=== PATIENT | female | born 1990 | race Caucasian/White ===

== ENCOUNTER 2021-08-10 08:23 | Outpatient (CLI) | payer OTHER ==
[2021-08-10 22:50] LABS: SARS-CoV-2 PCR by NAA Not Detected (NotDetected)
== END 2021-08-10 08:24 | disposition home or self-care (01) ==
LOC: CSHLAB 08:23
PROVIDERS: ATTEND Student in an Organized Health Care Education/Training Program
DX: Z20.822 Contact with and (suspected) exposure to COVID-19 (principal)
CPT/HCPCS: U0003; U0005

== ENCOUNTER 2021-08-14 06:00 | Inpatient (IN) | payer OTHER ==
[2021-08-15] MEDS ORDERED: Ondansetron PF 4 MG/2 ML Vial IVP PRN ×2 (06:50→13:08)
[2021-08-15] MEDS ORDERED: Methylergonovine 0.2 MG/ML VIAL IM PRN (06:50)
[2021-08-15] MEDS ORDERED: Lidocaine 1% (PF) 30 ML VIAL SC PRN (06:50)
[2021-08-15] MEDS ORDERED: hydrALAZINE 20 MG/ML VIAL SLOW IVP PRN (06:50)
[2021-08-15] MEDS ORDERED: Misoprostol 200 MCG TAB PR PRN (06:50)
[2021-08-15] MEDS ORDERED: Promethazine HCl 25 MG/ML VIAL IM PRN ×2 (06:50→13:08)
[2021-08-15] MEDS ORDERED: Acetaminophen 500 MG TAB PO PRN (06:50)
[2021-08-15] MEDS ORDERED: Butorphanol Tartrate 1 MG/ML VIAL SLOW IVP PRN (06:50)
[2021-08-15] MEDS ORDERED: Ibuprofen 800 MG TAB PO PRN (06:50)
[2021-08-15] MEDS ORDERED: Carboprost 250 MCG/ML AMP IM PRN (06:50)
[2021-08-15] MEDS ORDERED: Diphenoxylate HCl/Atropine Tablet PO PRN (06:50)
[2021-08-15] MEDS ORDERED: HYDROcodone/Acetaminophen 5/325 mg Tablet PO PRN (06:50)
[2021-08-15] MEDS ORDERED: Lactated Ringer's 1,000 ML IV SCH (07:00)
[2021-08-15] MEDS ORDERED: NS w/ Oxytocin 30 units 500 ML IV SCH (07:00)
[2021-08-15] MEDS ORDERED: Penicillin G Potassium 5 MILL.UNITS in Sodium Chloride 0.9% 100 ML IVPB SCH (07:00)
[2021-08-15] MEDS: Misoprostol 100 MCG TAB VAG SCH ×2 (08:08→11:26)
[2021-08-15 08:14] VITALS: BMI 36.6
[2021-08-15 08:34] LABS: Hemoglobin 11.3 g/dL (12.0-15.5); Mean Corpuscular HGB CONC 33.3 g/dL (32.0-36.0); Mean Corpuscular Hemoglobin 31.1 pg (27.0-33.0); Mean Corpuscular Volume 93.4 fl (81.6-98.3); Mean Platelet Volume 10.8 fl (7.4-10.4); Platelet Count 160 10x3/uL (150-450); RBC Distribution Width 19.8 % (11.5-14.5); Red Blood Cell (RBC) Count 3.63 10x6/uL (3.90-5.03); White Blood Cell (WBC) Count 10.1 10x3/uL (3.5-10.5)
[2021-08-15 09:07] LABS: Syphilis Antibody Nonreactive (Nonreactive); Syphilis Antibody Index 0.03 S/CO (<1.00 Non-Reactive)
[2021-08-15 09:08] LABS: Hep B Surf Ag Non-Reactive S/CO (NonReactive)
[2021-08-15 09:29] LABS: HBSAg Index 0.21 S/CO (0-0.99)
[2021-08-15] MEDS ORDERED: NS w/ Oxytocin 30 units 500 ML ONE (11:33)
[2021-08-15] MEDS ORDERED: NS w/ Oxytocin 10 units 500 ML IV SCH (11:45)
[2021-08-15] MEDS: Penicillin G 2.5 MILL.units 2.5 MILL.UNITS in Premix Bag 1 BAG IVPB SCH ×2 (12:16→16:22)
[2021-08-15] MEDS ORDERED: Fentanyl 2 mcg/Bup 0.1% Cadd 100 ML ONE ×2 (12:33→18:14)
[2021-08-15] MEDS ORDERED: ePHEDrine Sulfate 50 MG/10 ML VIAL SLOW IVP PRN (13:08)
[2021-08-15] MEDS ORDERED: Hydrocerin (Eucerin) Cream 120 gm Jar TOP PRN (13:08)
[2021-08-15] MEDS ORDERED: Lactated Ringer's 500 ML IV PRN (13:08)
[2021-08-15] MEDS ORDERED: diphenhydrAMINE 50 MG/ML VIAL IVP PRN (13:08)
[2021-08-15] MEDS ORDERED: Acetaminophen 325 MG TAB PO PRN (13:08)
[2021-08-15] MEDS ORDERED: Naloxone HCl 0.4 mg/ml Vial IVP PRN ×2 (13:08)
[2021-08-15] MEDS ORDERED: Fentanyl 2 mcg/Bupivacaine 0.1% Cassette 100 ML EPIDURAL SCH (13:15)
[2021-08-15] MEDS ORDERED: Communication Order-Pharmacy FS SCH (13:15)
[2021-08-16] MEDS ORDERED: Preparation H Ointment 28 GM TUBE PR PRN (00:10)
[2021-08-16] MEDS ORDERED: Bisacodyl 10 MG SUPP PR PRN (00:10)
[2021-08-16] MEDS ORDERED: hydrALAZINE 20 MG/ML VIAL SLOW IVP PRN (00:10)
[2021-08-16] MEDS ORDERED: Ondansetron PF 4 MG/2 ML Vial IVP PRN (00:10)
[2021-08-16] MEDS ORDERED: Benzocaine-Menthol 82.5 ML CAN TOP PRN (00:10)
[2021-08-16] MEDS ORDERED: diphenhydrAMINE 25 MG CAP PO PRN (00:10)
[2021-08-16] MEDS ORDERED: Boostrix 0.5 ML (Tdap) VIAL IM ONE (00:10)
[2021-08-16] MEDS ORDERED: Milk Of Magnesia 30 ML UDCUP PO PRN (00:10)
[2021-08-16] MEDS ORDERED: Promethazine HCl 25 MG/ML VIAL IM PRN (00:10)
[2021-08-16] MEDS ORDERED: Lanolin Ointment 7 GM TUBE TOP PRN (00:10)
[2021-08-16] MEDS ORDERED: NS w/ Oxytocin 30 units 500 ML IV SCH (01:00)
[2021-08-16] MEDS: Misoprostol 100 MCG TAB VAG SCH (01:34)
[2021-08-16] MEDS: Ibuprofen 800 MG TAB PO SCH ×3 (01:35→17:26)
[2021-08-16] MEDS: Penicillin G 2.5 MILL.units 2.5 MILL.UNITS in Premix Bag 1 BAG IVPB SCH (01:36)
[2021-08-16] MEDS: Prenatal Vitamin 1 TAB PO SCH (08:48)
[2021-08-16] MEDS: Docusate 100 MG CAP PO SCH ×2 (08:48→21:06)
[2021-08-16] MEDS: Ferrous Sulfate 325 MG TAB PO SCH ×2 (08:49→17:28)
[2021-08-17] MEDS: Ibuprofen 800 MG TAB PO SCH ×3 (00:41→17:33)
[2021-08-17 07:49] VITALS: BP 104/67; TEMP 97.5
[2021-08-17] MEDS: Docusate 100 MG CAP PO SCH (08:36)
[2021-08-17] MEDS: Prenatal Vitamin 1 TAB PO SCH (08:36)
[2021-08-17] MEDS: Ferrous Sulfate 325 MG TAB PO SCH ×2 (08:40→17:32)
== END 2021-08-17 19:25 | disposition home or self-care (01) | DRG 807 ==
LOC: CSHLD 23:39 → UNDOADMIN 23:39 → CSHLD 08-15 06:51 → CSHPED 08-16 00:30
PROVIDERS: ADMIT Student in an Organized Health Care Education/Training Program; ATTEND Student in an Organized Health Care Education/Training Program
PROC: 10E0XZZ Delivery of Products of Conception, External Approach (ICD-10-PCS; principal; 2021-08-15)
PROC: 10H07YZ Insertion of Other Device into Products of Conception, Via Natural or Artificial Opening (ICD-10-PCS; 2021-08-15)
DX: O99.824 Streptococcus B carrier state complicating childbirth (principal); Z37.0 Single live birth; O99.344 Other mental disorders complicating childbirth; F41.9 Anxiety disorder, unspecified; Z3A.39 39 weeks gestation of pregnancy; Z79.899 Other long term (current) drug therapy
CPT/HCPCS: 85027; 86780; 86850; 86900; 86901; 87340; J2540; J2590; J3490